=== PATIENT | female | born 1970 | race Caucasian/White ===

== ENCOUNTER 2017-03-05 12:11 | Emergency (ER) | payer MEDICAID ==
[~2017-03-05] VITALS: Wt 58.0 kg
--- NOTE | 2017-03-05 15:12 | ERD ---
ER Documentation Chief Complaint Chief Complaint RIGHT EAR PAIN X2 WEEKS, NO INJURY HPI 46-year-old female, presents to the emergency department complaining of 2 weeks of progressive right ear discomfort, associated with decreased hearing and plugging sensation. Denies any injury. No fever, no ear discharge , no ear pain. Treatment attempted: None. ROS SYSTEMIC symptoms: no fever, chills, no night sweats, no weight loss EYE symptoms: No blurred vision, no eye discharge OTOLARYNGEAL symptoms: Right hearing loss. No ear pain, no sore throat CARDIOVASCULAR symptoms: No chest pain or discomfort, no palpitations. PULMONARY symptoms: No dyspnea, no cough, no wheezing. GASTROINTESTINAL symptoms: No abdominal pain, no nausea, no vomiting, no diarrhea MUSCULOSKELETAL symptoms: No arthralgias, no muscle aches. NEUROLOGY symptoms: No confusion, no syncope, no numbness or tingling. SKIN: No rashes Medications Home Meds Active Scripts Neomycin/Polymyxin/Hydrocort* (Cortisporin* Otic) 10 Ml Susp, 4 DROP RIGHT EAR QID, #1 EA Prov:LILLIAM JIN MD 03/05/17 Allergies Allergies: Coded Allergies: No Known Allergy (Unverified , 03/05/17) PMhx/Soc History of Surgery: Yes (hysterectomy x10 ya) Hx Miscellaneous Medical Probl: Yes (dm2) Hx Alcohol Use: No Hx Substance Use: No Hx Tobacco Use: No Physical Exam Vitals Vital Signs Date Time Temp Pulse Resp B/P Pulse Ox O2 Delivery O2 Flow Rate FiO2 03/05/17 12:40 98.1 85 18 145/80 98 Physical Exam Patient is in no acute distress, vital signs stable. Alert and fully oriented. EYES: PERRLA, EOMI, Sclera and conjunctiva appear normal. EARS: Right ear: Cerumen impaction. Contralateral ear normal THROAT: Normal oropharynx. NECK: Supple, No lymphadenopathy. Full ROM without pain or tenderness. HEART: RRR, no rubs, murmurs, clicks or gallops. LUNGS: Clear to auscultation. ABDOMEN: Soft, non-tender without masses or hepatosplenomegaly. EXTREMITIES: No edema bilaterally. BACK: Full ROM, no deformity, normal back exam NEURO: Cranial nerves grossly intact, no motor or sensory deficit Procedures/MDM 46y/o female patient previously healthy, presents to the ED c/o progressive right ear clogging sensation for 14 days. Vital signs stable, Physical exam revealed a right ear cerumen impaction. Differential diagnosis include but not limited to: Otitis, foreign body, mastoiditis, cholesteatoma. Physical examination and clinical presentation consistent most likely with right cerumen impaction. During the ED course the patient remained stable, no new complaints. The patient received treatment with a right ear lavage successfully removing the cerumen and presenting overall improvement of the symptoms. Results and clinical impression discussed with patient who agrees with management. The patient is stable to be treated outpatient and will be discharged home with a Rx for Cortisporin otic, some side effects of prescribed medications (headache, rash, nausea, vomiting, diarrhea, drowsiness, habituation , bleeding, hypertension, interactions with other medications) were reviewed. The patient was instructed to follow up with the primary care provider in the next 48h. If symptoms persist, worsen or new symptoms develop, then patient should return to the ED immediately. Instructions explained and given directly by me to the patient in Ivorian with acknowledgment and demonstrated understanding. Disclaimer: Inadvertent spelling and grammatical errors are likely due to EHR/ dictation software use and do not reflect on the overall quality of patient care. Also, please note that the electronic time recorded on this note does not necessarily reflect the actual time of the patient encounter. Departure Diagnosis: Primary Impression: Impacted cerumen of right ear Condition: Stable Additional Instructions: Call your primary care doctor TOMORROW for an appointment during the next 1-2 days. See the doctor sooner or return here if your condition worsens before your appointment time. Thank you very much for allowing us to participate in your care. Your health and safety is our top priority at [facility]. Have prescriptions filled and follow precisely the directions on the label. Follow-up with primary care provider during the next 4 days and bring all the information and medications prescribed. If illness has not improved in 2 days, then make an appointment with primary care provider. If the provider is unavailable, return to the Emergency Department immediately. LILLIAM JIN MD Mar 05, 2017 15:12
[2017-03-05] MEDS ORDERED: NPH10OT RIGHT EAR (15:13)
== END 2017-03-05 15:49 | disposition home or self-care (01) ==
LOC: FTE 12:11
DX: H61.21 Impacted cerumen, right ear (principal); E11.9 Type 2 diabetes mellitus without complications
CPT/HCPCS: 69209; Z7502

== ENCOUNTER 2017-03-27 10:18 | Emergency (ER) | payer MEDICAID ==
[~2017-03-27] VITALS: Ht 157.5 cm; Wt 56.0 kg
[~2017-03-27 10:18] MED LIST: NPH10OT RIGHT EAR
[2017-03-27 10:25] VITALS: Ht 157.5 cm; Wt 56.0 kg
[2017-03-27] MEDS ORDERED: KETOROLAC 60 MG INJ IM STA (11:18)
--- NOTE | 2017-03-27 11:25 | ERD ---
ER Documentation Chief Complaint Chief Complaint dysuria x 3 days HPI 46-year-old female who presents emergency department for dysuria for 3 days. Stated that she has burning urination. Denies headache, dizziness, blurry vision, neck pain, throat pain, difficulty swallowing, shoulder pain, chest pain , back pain, difficulty breathing when lying flat, abdominal pain, nausea, vomiting, constipation, diarrhea, loss of bowel bladder control, or possibility of being , sexually active, recent travel, recent exposure to any illness, recent antibiotic use in the last 3 months, fever, chills, difficulty walking, numbness or tingling sensation, trauma, injury, falls. LMP: Stated that she has no menstrual periods anymore. A0. Surgical history: Hysterectomy. ROS All systems reviewed and are negative except as per history of present illness. Medications Home Meds Active Scripts Acetaminophen* (Tylophen*) 500 Mg Capsule, 1 CAP PO Q6H Y for PAIN AND OR ELEVATED TEMP, #20 CAP Prov:PASILABAN,EDILIAAR F 03/27/17 Ibuprofen* (Motrin*) 600 Mg Tab, 600 MG PO Q8, #30 TAB Prov:PASILABAN,EDILIAAR F 03/27/17 Phenazopyridine Hcl* (Pyridium*) 100 Mg Tab, 100 MG PO TID Y for URINARY PAIN, # 8 TAB Prov:PASILABAN,EDILIAAR F 03/27/17 Cephalexin* (Keflex*) 500 Mg Capsule, 500 MG PO QID for 5 Days, CAP Prov:PASILABAN,KLAR F 03/27/17 Neomycin/Polymyxin/Hydrocort* (Cortisporin* Otic) 10 Ml Susp, 4 DROP RIGHT EAR QID, #1 EA Prov:LLILIAM JIN MD 03/05/17 Allergies Allergies: Coded Allergies: No Known Allergy (Unverified , 03/27/17) PMhx/Soc History of Surgery: Yes (hysterectomy x10 ya) Hx Miscellaneous Medical Probl: Yes (dm2) Hx Alcohol Use: No Hx Substance Use: No Hx Tobacco Use: No Physical Exam Vitals Vital Signs Date Time Temp Pulse Resp B/P Pulse Ox O2 Delivery O2 Flow Rate FiO2 03/27/17 12:34 98.3 96 18 114/66 97 Room Air 03/27/17 10:25 99.1 110 18 132/76 99 Physical Exam Const: Well-appearing. Not in acute respiratory distress. Head: Atraumatic Eyes: Normal Conjunctiva ENT: Normal External Ears, Nose and Mouth. Neck: Full range of motion..~ No meningismus. Resp: Clear to auscultation bilaterally Cardio: Regular rate and rhythm, no murmurs Abd: Soft, non tender, non distended. Normal bowel sounds. There is no right upper/right lower/epigastric/left upper/left lower abdominal tenderness and light and palpation. Negative Rovsing sign. Negative Zak sign (heel jar test). Negative psoas sign. Able to jump 5 times without developing lower abdominal pain. Skin: No petechiae or rashes Back: No midline or flank tenderness. No CVA tenderness. Ext: No cyanosis, or edema Neur: Awake and alert. No neurological deficits. Psych: Normal Mood and Affect Results 24 hrs Laboratory Tests Test 03/27/17 11:25 Urine Color YELLOW Urine Clarity CLOUDY Urine pH 6.0 Urine Specific [place] 1.028 Urine Ketones 2+mg/dL Urine Nitrite POSITIVEmg/dL Urine Bilirubin NEGATIVEmg/dL Urine Urobilinogen NEGATIVEmg/dL Urine Leukocyte Esterase 2+Gennaro/ul Urine Microscopic RBC 2/HPF Urine Microscopic WBC 176/HPF Urine Squamous Epithelial Cells FEW/HPF Urine Bacteria FEW/HPF Urine Hemoglobin 1+mg/dL Urine Glucose 3+mg/dL Urine Total Protein NEGATIVEmg/dl Current Medications Medications (Trade) Dose Ordered Sig/Alfa Route PRN Reason Start Time Stop Time Status Last Admin Dose Admin Acetaminophen (Tylenol Tab) 650 mg ONCE ONCE PO 03/27/17 11:30 03/27/17 11:31 DC 03/27/17 11:29 Ketorolac Tromethamine (Toradol) 60 mg ONCE STAT IM 03/27/17 11:18 03/27/17 11:20 DC 03/27/17 11:30 Procedures/MDM Urinalysis: UTI. Culture urine: Sent. Awaiting for results. POC : Negative. Treatment: Toradol IM. Tylenol p.o. Reevaluation: Denies headache, shoulder pain, chest pain, back pain, abdomen, nausea, vomiting, difficulty breathing. No abdominal tenderness. No CVA tenderness. Ambulatory with steady gait and without difficulty and without pain to abdomen. No neurological deficit. No neurovascular deficits. Differential diagnosis: I have low suspicion for sepsis, nephrolithiasis, pyelonephritis, appendicitis, diverticulitis, pancreatitis, acute abdomen due to my physical exam, the patient is well-appearing, able to jump 5 times without developing abdominal pain, no CVA tenderness. Responded to antipyretic and pain medicine. Final diagnosis: Urinary tract infection. Prescription: Keflex. Motrin. Tylenol. Pyridium. Follow-up with PCP in the next 3-4 days. Come back here in the emergency department for any new symptoms or any worsening of symptoms. All questions and concerns are answered. Patient and family members verbalized understanding and agreed with plan of care. Hemodynamically stable on discharge. Departure Diagnosis: Primary Impression: Dysuria Additional Impression: UTI (urinary tract infection) Condition: Stable Additional Instructions: Follow-up with PCP in the next 3-4 days. Come back here in the emergency department for any new symptoms or any worsening of symptoms. All questions and concerns are answered. Patient and family members verbalized understanding and agreed with plan of care. MARION BROOKS Mar 27, 2017 11:25
[2017-03-27] MEDS ORDERED: ACETAMINOPHEN 325 MG TAB PO ONE (11:30)
[2017-03-27 11:51] LABS: ADD UMIC YES; UR ASCORBIC ACID NEGATIVE (NEGATIVE); UR BACTERIA FEW /HPF (NONE SEEN); UR BILIRUBIN (Dip) NEGATIVE (NEGATIVE); UR BLOOD (Dip) 1+ mg/dL (NEGATIVE); UR CLARITY CLOUDY (CLEAR); UR COLOR YELLOW (YELLOW); UR GLUCOSE (Dip) 3+ mg/dL (NEGATIVE); UR KETONES (Dip) 2+ mg/dL (NEGATIVE); UR LEUKOCYTE ESTERASE (Dip) 2+ Leu/ul (NEGATIVE); UR NITRITE (Dip) POSITIVE (NEGATIVE); UR RBC 2 /HPF (0-5); UR SPECIFIC GRAVITY (Dip) 1.028 (1.003-1.030); UR SQUAMOUS EPITHELIAL CELL FEW /HPF (FEW); UR TOTAL PROTEIN (Dip) NEGATIVE (NEGATIVE); UR UROBILINOGEN (Dip) NEGATIVE (NEGATIVE)
[2017-03-27] MEDS ORDERED: PHEN-537 PO (12:30)
[2017-03-27] MEDS ORDERED: IBUP-1542 PO (12:30)
[2017-03-27] MEDS ORDERED: CEPH-443 PO (12:30)
[2017-03-27] MEDS ORDERED: ACET500C5 PO (12:30)
[2017-03-27 12:34] VITALS: BP 114/66; PULSE 96; RESP 18; TEMP 98.3
== END 2017-03-27 12:43 | disposition home or self-care (01) ==
LOC: E/R 10:18
DX: N39.0 Urinary tract infection, site not specified (principal); E11.9 Type 2 diabetes mellitus without complications
CPT/HCPCS: 81001; 87086; 96372; J1885; Z7502; Z7610

== ENCOUNTER 2017-07-01 19:12 | Emergency (ER) | END 2017-07-01 23:02 | disposition home or self-care (01) ==